=== PATIENT | male | born 1950 | race Caucasian/White ===

== ENCOUNTER 2023-11-23 09:25 | Observation (INO) ==
--- NOTE | 2023-10-21 12:47 | PAT Medication Instructions ---
Medication Instructions Date of Service October 21, 2023 Home Medications lisinopril 20 mg tablet 10 mg PO QAM multivitamin 1 tab PO QAM omeprazole 20 mg tablet,delayed release 20 mg PO QAM DO NOT take the morning of surgery lisinopril 20 mg tablet 10 mg PO QAM multivitamin 1 tab PO QAM Take morning of surgery With a small sip of water, OTHERWISE NOTHING TO EAT OR DRINK AFTER MIDNIGHT: omeprazole 20 mg tablet,delayed release 20 mg PO QAM Other Notes If you have any questions please call us at [phone] or [phone] or [phone] or [phone]
--- NOTE | 2023-10-28 11:36 | Anesthesiology Consultation ---
Date of Service October 28, 2023 Assessment & Plan (1) Encounter for pre-operative examination: - Infectious disease screening: Per assessment on 10/28/23: No known recent infectious disease contacts or current infectious disease symptoms. - Outpatient joint assessment: Pt currently scheduled for inpatient pathway. If surgeon requests review for outpatient joint pathway, patient is an acceptable candidate for outpatient joint program from anesthesia standpoint pending further evaluation of preop EKG. - Hx PONV: Patient inquired about scope patch use perioperative (good response for family member with similar PONV hx). At anesthesiologist discretion DOS regarding scope patch use. - Preop EKG: Done 10/28/23- notes TWA, consider lateral ischemia. Patient reports remote abnormal EKG findings in which unremarkable cardiac cath done for further evaluation (1987). Patient aware preop cardiac evaluation needed prior to surgery. Awaiting cardiology preop evaluation given abnormal preop EKG ([facility], appt date TB). Patient otherwise acceptable risk for surgery. Chart Review Chart Review: Patient seen in Pre Admission Testing Teaching & Discussion Pre-Anesthesia Teaching/Discussion Notes: Instructed NPO after midnight before surgery,except medications with 15 cc of water. Medication instructions provided according to the PAT guidelines. History Surgery Operation Date: 11/23/23 07:00 Proposed Procedures p Left Total Knee Arthroplasty - Nicholas Luong, DO Height/Weight Height: 5 ft 4 in Weight: 78.2 kg Allergies Allergy/AdvReac Type Severity Reaction Status Date / Time hydrocodone Allergy Intermediate n/v Verified 10/20/23 08:03 meperidine [From Demerol] Allergy Intermediate n/v Verified 10/20/23 08:03 prednisone Allergy Intermediate n/v Verified 10/20/23 08:03 Medications Home Medications Medication Instructions Recorded Confirmed Last Taken lisinopril 20 mg tablet 10 mg PO QAM 10/20/23 10/20/23 Unknown multivitamin 1 tab PO QAM 10/20/23 10/20/23 Unknown omeprazole 20 mg tablet,delayed 20 mg PO QAM 10/20/23 10/20/23 Unknown release Past Medical History Medical History Abnormal Q waves on electrocardiogram Q wave abnormality on 1987 EKG > 1987 cardiac cath with no stents per patient Arthritis Borderline high cholesterol Claustrophobia Elevated PSA GERD (gastroesophageal reflux disease) Hypertension Osteoarthritis of left knee Exercise / Class Metabolic Activity II 4-5 Yardwork/Stairs/Walk up hill (one FS: no CP, no SOB) Past Family History Family History Other No family history of adverse response to anesthesia Past Surgical History Surgical History H/O hernia repair H/O prostate biopsy benign History of cardiac cath 1987>no stents History of colonoscopy History of postoperative nausea and vomiting Past Anesthesia History No Family Hx of Anesthesia Complications and Other (Decreased BP after prostate biopsy) History of PONV History of PONV and Hx of Motion Sickness (Situational) Social History Smoking Status: Never smoker Do You Dip or Chew Tobacco: No Hx Alcohol Use: No substance use type: does not use Review of Systems Patient denies chest pain, shortness of breath, dyspnea on exertion, fever, chills, cough, wheezing, palpitations. Physical Exam Vital Signs BP 156/62 P 82 TEMP 98.1 SP02 96%RA RESP 16 Physical Full cervical extension range of motion. Full TMJ range of motion. TMD 3 finger breaths Mallampati Score III Dentition: missing sides Lungs: clear throughout to auscultation Cardiac: regular rate and rhythm, no murmurs noted Spine: normal Carotid arteries: negative bruit Extremities: no LE edema Lab Results Anesthesia Preop Results Results Anesthesia Widget: WBC 8.38 K/ul (4.8-10.8) 10/28/23 Hgb 16.4 g/dl (14.0-18.0) 10/28/23 Hct 47.1 % (42.0-52.0) 10/28/23 Plt 281 K/uL (130-400) 10/28/23 Na 138 mmol/L (136-145) 10/28/23 K 3.6 mmol/L (3.5-5.1) 10/28/23 Cl 104 mmol/L (98-107) 10/28/23 CO2 24 mmol/L (21-32) 10/28/23 BUN 15 mg/dl (6-23) 10/28/23 Creat 0.84 mg/dl (0.6-1.4) 10/28/23 Glucose Level 131 mg/dl (70-99(Fasting)) H 10/28/23 PT 10.9 Seconds (9.0-12.0) 10/28/23 PTT 29 Seconds (21-31) 10/28/23 INR 1.0 (0.9-1.1) 10/28/23 Blood Type O Positive 10/28/23 Antibody Screen NEGATIVE 10/28/23 Testing Electrocardiogram Date: 10/28/23 NSR at 79bpm. RBBB. TWA, consider lateral ischemia. Chest X-Ray Date: 10/28/23 FINDINGS: Lung volumes are normal. Lungs are clear. There is no pneumothorax or pleural effusion. Cardiac size is normal. Mediastinal contours are normal. There is no evidence for pulmonary edema. IMPRESSION: No acute cardiopulmonary findings.
[~2023-11-23 09:25] MED LIST: BUPIVACAINE 0.5 % 5 MG/1 ML PF 10ML VIAL ONE; BUPIVACAINE/EPINEPHRINE 0.25% 1:200,000 30 ML VIAL ONE; DEXAMETHASONE SOD INJ 4 MG/ML VIAL ONE
[2023-11-23] MEDS ORDERED: MIDAZOLAM HCL 1 MG/ML 2ML VIAL ONE (10:25)
[2023-11-23] MEDS ORDERED: KETAMINE HCL 10MG/ML SYR ONE (10:25)
[2023-11-23] MEDS ORDERED: PROPOFOL IV EMULSION 10 MG/ML 20 ML VIAL IV ONE (10:32)
[2023-11-23] MEDS ORDERED: LIDOCAINE 2% 2 ML VIAL/AMP(20MG/ML) INFIL ONE (10:32)
[2023-11-23] MEDS ORDERED: ONDANSETRON INJ 2 MG/ML 2 ML VIAL ONE (10:32)
[2023-11-23] MEDS ORDERED: GLYCOPYRROLATE 0.2 MG/ML VIAL ONE (10:32)
[2023-11-23] MEDS: LR 500ML BOLUS, THEN 15ML/HR IV SCH (10:35)
[2023-11-23] MEDS: LR 60ML/HR IV SCH (10:53)
[2023-11-23] MEDS: GABAPENTIN 300 MG CAP PO SCH (11:00)
[2023-11-23] MEDS: FAMOTIDINE 20 MG TAB PO SCH (11:00)
[2023-11-23] MEDS: ACETAMINOPHEN 500 MG TAB PO SCH ×2 (11:00→21:08)
[2023-11-23] MEDS: dexAMETHasone**PF** 10 MG/ML VIAL IV SCH (11:01)
--- NOTE | 2023-11-23 11:14 | History & Physical Bridge Note ---
Date of Service November 23, 2023 History & Physical Bridge Note I have examined the patient, reviewed the History & Physical and in the interval since the performance of the History & Physical I have noted the following changes of clinical significance: no changes noted
[2023-11-23] MEDS ORDERED: ONDANSETRON INJ 2 MG/ML 2 ML VIAL IV PRN (11:16)
[2023-11-23] MEDS ORDERED: PROMETHAZINE HCL 6.25 MG in SODIUM CHLORIDE 0.9% 50 ML IV PRN (11:16)
[2023-11-23] MEDS ORDERED: ATROPINE SULFATE 0.1 MG/ML 10ML SYR IV PRN (11:16)
[2023-11-23] MEDS ORDERED: fentaNYL citrate PF 100 MCG/2 ML VIAL IV PRN (11:16)
[2023-11-23] MEDS ORDERED: ePHEDrine sulfate 50 MG/ML AMP IV PRN (11:16)
--- NOTE | 2023-11-23 11:16 | Anesthesiology Consultation ---
Date of Service November 23, 2023 Assessment & Plan Chart Review Chart Review: Acceptable Risk for Surgery and Patient NOT seen in Pre Admission Testing Consults Requested none ASA ASA2 Proposed Anesthesia Anesthesia Type: MAC Spinal Regional Regional Laterality: Left Site: Adductor Canal Risk / Benefits Reviewed With: PT / POA / Parent / Guardian, Accepts Plan and Informed Consent Obtained History Surgery Operation Date: 11/23/23 12:00 Proposed Procedures p Left Total Knee Arthroplasty - Nicholas Luong, Height/Weight Height: 5 ft 4 in Weight: 75.6 kg Allergies Allergy/AdvReac Type Severity Reaction Status Date / Time hydrocodone Allergy Intermediate n/v Verified 11/23/23 10:28 meperidine [From Demerol] Allergy Intermediate n/v Verified 11/23/23 10:28 prednisone Allergy Intermediate n/v Verified 11/23/23 10:28 Medications Home Medications Medication Instructions Recorded Confirmed Last Taken lisinopril 20 mg tablet 10 mg PO QAM 10/20/23 11/23/23 11/22/23 07:00 multivitamin 1 tab PO QAM 10/20/23 11/23/23 11/22/23 07:00 omeprazole 20 mg tablet,delayed 20 mg PO QAM 10/20/23 11/23/23 11/23/23 06:30 release Active Medications Generic Name Dose Route Start Last Admin Trade Name Edgardq PRN Reason Stop Dose Admin Acetaminophen 1,000 mg 11/23/23 06:00 11/23/23 11:00 Acetaminophen 500 Mg Tab PO 11/23/23 18:00 1,000 mg PREOP LISA Administration Dexamethasone Sodium Phosphate 10 mg 11/23/23 06:00 11/23/23 11:01 DexamethasonePf 10 Mg/Ml Vial IV 11/23/23 18:00 10 mg PREOP LISA Administration Famotidine 20 mg 11/23/23 06:00 11/23/23 11:00 Famotidine 20 Mg Tab PO 11/23/23 18:00 20 mg PREOP LISA Administration Gabapentin 300 mg 11/23/23 06:00 11/23/23 11:00 Gabapentin 300 Mg Cap PO 11/23/23 18:00 300 mg PREOP LIAS Administration Lactated Ringer's 1,000 mls @ 15 mls/hr 11/23/23 06:00 11/23/23 10:35 Lr IV 11/23/23 18:00 15 mls/hr .Q24H LISA Administration Lactated Ringer's 1,000 mls @ 60 mls/hr 11/23/23 06:00 11/23/23 10:53 Lr IV 11/23/23 22:39 Not Given .[id number] LISA NPO Date Last Intake of Fluids: 11/22/23 Time Last Intake of Fluids: 23:00 Date Last Intake of Solids: 11/22/23 Time Last Intake of Solids: 23:00 Past Medical History Medical History Abnormal Q waves on electrocardiogram Q wave abnormality on 1987 EKG > 1987 cardiac cath with no stents per patient Arthritis Borderline high cholesterol Claustrophobia Elevated PSA GERD (gastroesophageal reflux disease) Hypertension Osteoarthritis of left knee Exercise / Class Metabolic Activity II 4-5 Yardwork/Stairs/Walk up hill Past Family History Family History Other No family history of adverse response to anesthesia Past Surgical History Surgical History H/O hernia repair H/O prostate biopsy benign History of cardiac cath 1987>no stents History of colonoscopy History of postoperative nausea and vomiting Past Anesthesia History No Hx of Anesthesia Complications and No Family Hx of Anesthesia Complications History of PONV No Hx of PONV and No Hx of Motion Sickness Social History Smoking Status: Never smoker Do You Dip or Chew Tobacco: No Hx Alcohol Use: No substance use type: does not use Physical Exam Vital Signs Last Vital Signs Temp 37 C 11/23/23 10:30 Pulse 82 11/23/23 10:30 Resp 20 11/23/23 10:30 BP 143/95 H 11/23/23 10:30 Pulse Ox 96 11/23/23 10:30 O2 Del Method Room Air 11/23/23 10:30 ENMT Mouth: no dentition abnormality Thyromental Distance: > or= 3.5 Finger Breadths Mallampati Class: II Neck normal visual inspection Respiratory normal respiratory effort Auscultation: lungs clear to auscultation bilaterally Cardiovascular Rate/Rhythm: regular rate and regular rhythm Psychiatric Orientation: alert Testing Electrocardiogram Date: 10/28/23 NSR at 79bpm. RBBB. TWA, consider lateral ischemia. Chest X-Ray Date: 10/28/23 FINDINGS: Lung volumes are normal. Lungs are clear. There is no pneumothorax or pleural effusion. Cardiac size is normal. Mediastinal contours are normal. There is no evidence for pulmonary edema. IMPRESSION: No acute cardiopulmonary findings.
[2023-11-23] MEDS: TRANEXAMIC ACID 1,000 MG **IV Pre-op IV SCH (11:53)
[2023-11-23] MEDS: ceFAZolin 2000MG 2,000 MG/15 ML SYR IV SCH ×2 (12:05→19:30)
[2023-11-23] MEDS: ORTHO JOINT ANESTHETIC ONE (12:50)
[2023-11-23] MEDS: ROPIV 0.5% 246mg, Ketorolac 30mg, EPINEPHrine 0.5mg in NSS INFIL SCH (12:50)
[2023-11-23] MEDS: TRANEXAMIC ACID 1,000 MG **IV Intra-op IV SCH (13:10)
--- NOTE | 2023-11-23 13:35 | Operative Report ---
PG Post Operative Report Pre & Post Diagnosis Operation Date: 11/23/23 12:00 Pre-Op Diagnosis: Left Knee Degenerative Joint Disease Post-Op Diagnosis: Left Knee Degenerative Joint Disease I identified the patient and participated in the time-out.: Yes Procedure Operation Date: 11/23/23 12:00 Actual Procedures p Left Total Knee Arthroplasty(Left) - Nicholas Luong DO Surgeon Nicholas Luong DO Regional Psychiatric Director Nicholas Jefferson PA-C Estimated Blood Loss 30 Findings Consistent with Post-Op Diagnosis Specimens Left femoral tibial bone Description of Procedure Implants used: I used a Jose Persona total knee arthroplasty system with a size 9 PS femur, E tibia, 31 oval patella, and a size 12 CPS polyethylene bearing. All components were cemented in place with Biomet cement. Hugo arrived [facility] for the above procedure. He was seen in the preoperative holding area and the operative extremity was identified and signed. He was given a preoperative antibiotic, TXA, a spinal anesthetic and an adductor nerve block. He was taken back to the operating room and laid on the table in supine position. He was given basic sedation. The operative knee was then prepped and draped in sterile fashion. A timeout was done, and the patient and the operative extremity was properly identified. A midline incision was made directly over the patella. Dissection was taken down to the extensor mechanism. A subvastus arthrotomy was used. The medial retinaculum was released and the fat pad was mostly excised. The knee was flexed and the ACL, PCL, and meniscus were removed. A drill was sent down the center of the femoral canal followed by an intramedullary bulmaro. Off that bulmaro a distal femoral cutting block was placed. 9 mm was resected off the distal femur at 5 of valgus. A posterior referencing AP sizing guide was then placed on the distal femur. The femur measured to be a size 9. 2 drill holes were placed in 3 of external rotation. A 4-in-1 cutting block was then impacted into place. Anterior, posterior, and chamfer cuts were then made. The proximal tibia was then exposed. An external tibial alignment guide was placed. A tibial cut guide was then anchored in place and the proximal tibia was then resected. The posterior aspect of the knee was then opened up and any additional meniscus fragments and osteophytes were removed. The tibia measured to be a size E. The tibial plate was then placed in the appropriate rotation and the tibia was drilled and punched. Trial components were then placed. I used a size 12 CPS polyethylene insert. The knee was brought through a full range of motion and felt to be stable. The peg holes for the femoral component were then drilled. The patella was then everted and 9 mm was resected off the posterior aspect of the patella. The patella measured to be a size 28 oval. 3 peg holes were then drilled. A trial patella was placed. The knee was once again brought through a full range of motion and felt to be stable. Trial components were then removed. The surrounding soft tissues were injected with 100 cc of an orthopedic pain control cocktail. All components were then cemented into place with Biomet cement. The final polyethylene insert was then snapped into place. Once cement was dry the tourniquet was deflated. Hemo stasis was obtained. A dilute betadyne lavage was then done for 3 minutes. The joint was then irrigated with normal saline solution. The subvastus arthrotomy was then closed with #1 Vicryl suture. The skin was closed with 2-0 Vicryl, 3- 0V lock suture, and chele. A soft compressive dressing was placed. He was then transferred to a hospital bed and taken to the postanesthesia care unit in stable condition. He tolerated the procedure well. Nicholas Jefferson PA-C, was present for the entire procedure. He was critical for patient positioning, prepping, draping, retraction exposure, wound closure and application of sterile dressing. I attest to the content of the Intraoperative Record and any orders documented therein. Any exceptions are noted below.
--- NOTE | 2023-11-23 13:55 | XRay Report ---
XR knee LT 1 or 2V routine CLINICAL HISTORY: Surgical Post Op TECHNIQUE: 2 views of the left knee were obtained. Comparison: Comparison is made to knee radiographs 08/18/2023 FINDINGS: Patient is status post total knee arthroplasty with expected postsurgical changes including soft tiss ue swelling and subcutaneous emphysema. No periarticular lucency or hardware fracture is seen. IMPRESSION: Expected postoperative appearance status post placement of total knee arthroplasty. ACT 112: Negative or not required by law. Electronically signed by: Marbin Do M.D. 11/23/2023 1:54 PM
--- NOTE | 2023-11-23 14:30 | Anesthesiology Progress Note ---
Date of Service November 23, 2023 Anesthesia Post Procedure Vital Signs Vital Signs: Temp Pulse Resp BP BP Pulse Ox O2 Del Method 11/23/23 14:15 36.5 C 95 H 16 125/76 94 Room Air 11/23/23 14:05 97 H 14 143/81 H 94 Oxymask 11/23/23 13:55 92 H 12 142/84 H 95 Oxymask 11/23/23 13:45 87 16 132/70 95 Oxymask 11/23/23 13:37 36.5 C 90 16 121/70 95 Oxymask 11/23/23 10:30 37 C 82 20 143/95 H 96 Room Air O2 Flow Rate 11/23/23 14:15 11/23/23 14:05 4 11/23/23 13:55 4 11/23/23 13:45 4 11/23/23 13:37 6 11/23/23 10:30 Pain Intensity Left Knee: Pain Intensity: 8 Transfer of Care Handoff Completed per policy Notes Mental Status: alert / awake / arousable Patient Amnestic to Procedure: Yes Nausea / Vomiting: adequately controlled Pain: adequately controlled Airway Patency, RR, SpO2: stable & adequate BP & HR: stable & adequate Hydration State: stable & adequate Neuraxial Anesthesia: was administered and sensory block is resolving Anesthetic Complications: no major complications apparent and Pt Satisfied with anesthetic care
[2023-11-23] MEDS ORDERED: HYDROmorphone INJ 0.5 MG/0.5 ML SYR IV PRN (15:04)
[2023-11-23] MEDS ORDERED: bisacodyL 10 MG SUPP PR PRN (15:04)
[2023-11-23] MEDS ORDERED: METOCLOPRAMIDE HCL INJ 5 MG/ML 2 ML VIAL IV PRN (15:04)
[2023-11-23] MEDS ORDERED: NALOXONE HCL 0.4 MG/1 ML VIAL/CARP IV PRN (15:04)
[2023-11-23] MEDS ORDERED: MAGNESIUM HYDROXIDE SUSP 30 ML UDC PO PRN (15:04)
[2023-11-23] MEDS: ONDANSETRON INJ 2 MG/ML 2 ML VIAL IV PRN (15:44)
[2023-11-23] MEDS: SODIUM CHLORIDE 0.9% 1,000 ML IV SCH (15:48)
[2023-11-23] MEDS: oxyCODONE HCL IR 5 MG TAB (IMMEDIATE RELEASE) PO PRN (19:30)
[2023-11-23] MEDS: ASPIRIN 81 MG ECTAB PO SCH (21:08)
[2023-11-23] MEDS: SENNA 8.6 MG TAB PO SCH (21:08)
[2023-11-23] MEDS: DOCUSATE SODIUM 100 MG CAP PO SCH (21:08)
[2023-11-24 03:26] VITALS: RESP 16; TEMP 97.8
--- NOTE | 2023-11-24 07:06 | Orthopedic Progress Note ---
Date of Service November 24, 2023 Assessment & Plan (1) Status post left knee replacement: Overall he is doing very well. He is not having much pain in the left knee. He will be seen by physical therapy today for ambulation and range of motion exercises. The nursing staff can change his dressing after physical therapy. He is on aspirin for DVT prophylaxis. He can be discharged home later today. He will follow-up with orthopedics in 2 weeks. Nikhil Arias was seen and examined at bedside this morning. Overall he is doing fairly well. He is not having much pain in his left knee. He has been up and ambulating to the bathroom. He has no complaints.. Review of Systems All systems reviewed & are unremarkable except as noted in HPI & below. Physical Exam On physical examination of the left knee, the dressing is clean and dry. His leg is out full extension. He has active dorsiflexion plantarflexion of his left ankle.. Results & Data Results & Data Laboratory Results . Diagnostic Findings Postoperative x-rays of the left knee show the prosthesis to be in anatomic alignment without any evidence of fracture complication, or loosening.. PG Care Time/CCT Total # of Minutes Spent Total Time Spent with Patient: Total time spent is greater than 50% in coordination of care (as documented) at patient's floor/unit and/or counseling patient: Coding Level of Care Code 16525 Post Operative Follow-Up Diagnoses Status post left knee replacement Z96.652
--- NOTE | 2023-11-24 07:07 | Discharge Summary ---
Date of Service November 24, 2023 Principal Diagnosis Same as "Discharge Diagnosis" noted below under Discharge Instructions. Discharge Exam On physical examination of the left knee, the dressing is clean and dry. His leg is out full extension. He has active dorsiflexion plantarflexion of his left ankle.. Discharge Data Procedures Performed Operation Date: 11/23/23 12:00 Actual Procedures p Left Total Knee Arthroplasty(Left) - Nicholas Luong DO Ordered Studies 11/23/23 05:00 US - OR guided needle placemen Routine Hospital Course (1) Status post left knee replacement: On November 23, [address] [facility] [place] and underwent a left knee replacement without complication. he had a spinal anesthetic. Postoperatively he was started on aspirin for DVT prophylaxis and transferred to the general orthopedic floors. His hospital course was uneventful. On postop day #1, his vital signs were stable and her pain was well-controlled. he was able to participate well with physical therapy doing ambulation and range of motion exercises. he was then discharged to home. he will follow-up with orthopedics in 2 weeks. PG Care Time/CCT Total # of Minutes Spent Total Time Spent with Patient: Total time spent is greater than 50% in coordination of care (as documented) at patient's floor/unit and/or counseling patient: Discharge Plan Discharge Items Patient Disposition: Home - Self-Care Reason For Visit: Left Knee Degenerative Joint Disease Discharge Diagnosis: Left knee replacement Activity: Per Instructions section Non-emergency contact: Surgeon Call non-emergency contact if: your wound has increased redness and your wound has increased drainage Follow-up/Referrals: Frances Valenzuela MD [Primary Care Provider] - Diet: Regular Addtl Attending Provider Instructions: Activity and Therapy Recommendations: * If you are using [facility] then therapy will be provided at your home until they feel you have accomplished all of your goals. * If you are using [facility] then Physical Therapy will be provided until they feel you are ready to start Outpatient Physical Therapy. * If you are not using home therapy then Outpatient Physical Therapy should start about 3-5 days from your day of surgery. Therapy will last about 6-10 weeks * It is important not to put a pillow under your knee when you are relaxing or sleeping. It is just as important to make sure you are getting your knee perfectly straight as it is to regain your knee bend. * You were shown a series of exercises in the hospital. Do these exercises three times each day including the exercises you were shown in physical therapy. * Get up and walk several times each day. For the first four weeks, try not to stand or walk for more than one hour at a time. If you do stand or walk for more than one hour, you will not hurt anything, but your leg will likely swell. * As you feel comfortable, you may change from the walker or crutches to a cane and then to independent walking. Medications: * Narcotic You will likely be sent home from the hospital with a prescription for the narcotic pain medication that worked best throughout your stay. * Cefadroxil -take the antibiotic twice a day for 10 days to help prevent infection. * Aspirin Most patients will be required to take Aspirin 81mg twice a day for 6 weeks after surgery. This is obtained [id number] and a prescription is not necessary. * Other medications may be prescribed for specific circumstances. If you have any questions, please call the office at . * Resume previous home medications unless otherwise instructed TEDs/Elastic Stockings: The white elastic stockings help limit swelling and prevent blood clots from forming in your legs.~ The more you wear them, the more they work. Wear them for six weeks. Dressing Care: The dressing can be changed after physical therapy on postop day #1. Daily dry dressing changes for a few days, especially if the incision is still draining some. If the incision is not draining then you may leave the chele open to air. If there is a little bit of drainage or if the chele are getting stuck on your clothing then cover the incision with a dry dressing. The chele will be removed at your 2 week follow-up appointment. Showering: You may shower 5 days from the day of surgery as long as the incision is no longer draining. You may shower with the chele exposed. Let soapy water run over the chele and pat them dry. Do not scrub or soak the incision. Things To Watch For: * Drainage from the incision site that occurs more than one week after your surgery. * Increased redness at the incision site. * Fever above 102 degrees Fahrenheit. * Unusual chest pain or shortness of breath. * Call [facility] at with any of the above problems Follow-Up Visit: Follow-up with Dr. Luong's PA (Nicholas Jefferson) 2-3 weeks after your day of surgery. He will remove your chele and answer any questions. If you have any additional questions or concerns, Dr Luong is usually in the office at the same time and will be available An appointment was probably scheduled when you signed-up for surgery in the office. If you have any questions call Office Instructions: More detailed instructions as well as Frequently Asked Questions were provided in a folder by our office when you signed-up for surgery. Please review these instructions when you get home. If you have any further questions or concerns, please feel free to call the office at [phone] Pending Studies at Discharge: No Stand-Alone Forms: My [facility], Smoking Cessation Medications and DC Order Prescriptions: New oxycodone 5 mg Tablet 5 mg PO Q4H PRN (Reason: pain) Qty: 30 0RF cefadroxil 500 mg capsule 500 mg PO BID 10 Days Qty: 20 0RF aspirin 81 mg Tablet,Delayed Release (Dr/Ec) 81 mg PO BID 42 Days Qty: 0 0RF Continued multivitamin Tablet 1 tab PO QAM lisinopril 20 mg Tablet 10 mg PO QAM omeprazole 20 mg Tablet,Delayed Release (Dr/Ec) 20 mg PO QAM Discharge Orders: Discharge Order (Routine); Ordered 11/24/23 Ordered By: Nicholas Luong Admission Data Admit Date/Time: 11/23/23 13:39 Attending Provider: Nicholas Luong Admit Provider: Nicholas Luong Primary Care Provider: Frances Valenzuela
[2023-11-24 07:40] VITALS: BP 136/78; PULSE 79; O2SAT 93
[2023-11-24] MEDS: dexAMETHasone 4 MG TAB PO SCH (08:38)
[2023-11-24] MEDS: MULTIVITAMIN TAB PO SCH (08:38)
[2023-11-24] MEDS: lisinopril 10 MG TAB PO SCH (08:38)
== END 2023-11-24 11:01 | disposition home or self-care (01) ==
LOC: ASU 09:25 → 3W 09:25

== ENCOUNTER 2024-05-30 08:50 | Observation (INO) ==
--- NOTE | 2024-05-03 10:37 | PAT Medication Instructions ---
Medication Instructions Date of Service May 03, 2024 Home Medications lisinopril 20 mg tablet 10 mg PO QAM omeprazole 20 mg tablet,delayed release 20 mg PO QAM DO NOT take the morning of surgery lisinopril 20 mg tablet 10 mg PO QAM Take morning of surgery With a small sip of water, OTHERWISE NOTHING TO EAT OR DRINK AFTER MIDNIGHT: omeprazole 20 mg tablet,delayed release 20 mg PO QAM Other Notes If you have any questions please call us at [phone] or [phone] or [phone] or [phone]
--- NOTE | 2024-05-10 10:32 | Anesthesiology Consultation ---
Date of Service May 10, 2024 Assessment & Plan (1) Encounter for pre-operative examination: - Infectious disease screening: Per assessment on 05/10/24- No known recent infectious disease contacts. Sinus infection/congestion onset ~04/18/24. Symptoms resolved except residual, occasional mild cough/congestion. DOS 05/30/24. Patient advised to contact surgeon/PAT if symptoms not at baseline prior to surgery. - Outpatient joint assessment: Pt currently scheduled for inpatient pathway. If surgeon requests review for outpatient joint pathway, patient is an acceptable candidate for outpatient joint program from anesthesia standpoint pending surgeon's office assessment that patient is motivated, has good support and completes [facility] preop requirements. - Cardiology addendum (11/20/23): Preop evaluation prior to Left TKA > "Patient underwent a transthoracic echocardiogram today which demonstrates normal Left ventricular chamber size and systolic function with an ejection fraction of 60 to 65%. Patient has moderate concentric left ventricular hypertrophy and mildly dilated left atrium which is consistent with hypertensive heart disease. This is also consistent with patient's 12lead ECG. Patient has no valvular heart disease. At this time do not recommend further cardiovascular testing or procedures prior to undergoing planned surgery on 11/23/2023. Patient should be considered a low to intermediate cardiovascular risk candidate. Do recommend strict blood pressure control throughout the perioperative period. Patient's blood pressure at time of echocardiogram was wellcontrolled at 132/64." - S/P Left TKA (11/23/23): SAB at L3/4 (1 attempt) + regional - Patient request/concern: Patient states med given prior to 11/23/23 surgery was effective for N/V and requests to have again Chart Review Chart Review: Acceptable Risk for Surgery and Patient seen in Pre Admission Testing Teaching & Discussion Pre-Anesthesia Teaching/Discussion Notes: Instructed NPO after midnight before surgery,except medications with 15 cc of water. Medication instructions provided according to the PAT guidelines. History Surgery Operation Date: 05/30/24 10:20 Proposed Procedures p Right Total Knee Arthroplasty - Nicholas Luong DO Height/Weight Height: 5 ft 4 in Weight: 77.2 kg Allergies Allergy/AdvReac Type Severity Reaction Status Date / Time hydrocodone Allergy Intermediate n/v Verified 04/28/24 09:45 meperidine [From Demerol] Allergy Intermediate n/v Verified 04/28/24 09:45 prednisone Allergy Intermediate n/v Verified 04/28/24 09:45 Medications Home Medications Medication Instructions Recorded Confirmed Last Taken lisinopril 20 mg tablet 10 mg PO QAM 10/20/23 04/28/24 11/22/23 07:00 omeprazole 20 mg tablet,delayed 20 mg PO QAM 10/20/23 04/28/24 11/23/23 06:30 release Past Medical History Medical History Abnormal Q waves on electrocardiogram Q wave abnormality on 1987 EKG > 1987 cardiac cath with no stents per patient Seen by [facility] 10/2023 Arthritis Borderline high cholesterol Claustrophobia Elevated PSA GERD (gastroesophageal reflux disease) Hypertension Osteoarthritis of right knee Exercise / Class Metabolic Activity II 4-5 Yardwork/Stairs/Walk up hill (one FS: No CP, no SOB) Past Family History Family History Other No family history of adverse response to anesthesia Past Surgical History Surgical History H/O hernia repair H/O prostate biopsy benign History of cardiac cath 1987- no stents History of colonoscopy History of postoperative nausea and vomiting Patient states med given prior to 11/23/23 surgery was effective for N/V and requests to have again Status post left knee replacement (11/23/23) Left TKA: SAB at L3/4 (1 attempt) + regional Past Anesthesia History No Hx of Anesthesia Complications and No Family Hx of Anesthesia Complications History of PONV History of PONV and Hx of Motion Sickness Social History Smoking Status: Never smoker Do You Dip or Chew Tobacco: No Hx Alcohol Use: No Hx Substance Use: No substance use type: does not use Review of Systems Patient denies chest pain, shortness of breath, dyspnea on exertion, fever, chills, cough, wheezing. Physical Exam Vital Signs BP 127/75 P 77 TEMP 98.1 SP02 95%RA RESP 16 Physical Full cervical extension range of motion. Full TMJ range of motion. TMD > 3.5 finger breaths Mallampati Score II Dentition: missing sides/molars Lungs: clear throughout to auscultation Cardiac: regular rate and rhythm, no murmurs noted Spine: normal Carotid arteries: negative bruit Extremities: no LE edema Lab Results Anesthesia Preop Results Results Anesthesia Widget: WBC 8.43 K/ul (4.8-10.8) 05/10/24 Hgb 16.7 g/dl (14.0-18.0) 05/10/24 Hct 48.4 % (42.0-52.0) 05/10/24 Plt 310 K/uL (130-400) 05/10/24 Na 136 mmol/L (136-145) 05/10/24 K 4.1 mmol/L (3.5-5.1) 05/10/24 Cl 103 mmol/L (98-107) 05/10/24 CO2 26 mmol/L (21-32) 05/10/24 BUN 12 mg/dl (6-23) 05/10/24 Creat 0.80 mg/dl (0.6-1.4) 05/10/24 Glucose Level 99 mg/dl (70-99(Fasting)) 05/10/24 PT 10.7 Seconds (9.0-12.0) 05/10/24 PTT 31 Seconds (21-31) 05/10/24 INR 1.0 (0.9-1.1) 05/10/24 Blood Type O Positive 05/10/24 Antibody Screen NEGATIVE 05/10/24 Testing Electrocardiogram Date: 10/28/23 NSR at 79bpm. RBBB. TWA, consider lateral ischemia. Chest X-Ray Date: 10/28/23 FINDINGS: Lung volumes are normal. Lungs are clear. There is no pneumothorax or pleural effusion. Cardiac size is normal. Mediastinal contours are normal. There is no evidence for pulmonary edema. IMPRESSION: No acute cardiopulmonary findings. Echocardiogram Date: 11/20/23 LVEF 60-65%. No RWMA. Moderate cLVH. Mild LAD. RVSP ~24mmhg. No significant valvular disease.
[~2024-05-30 08:50] MED LIST changes: -BUPIVACAINE/EPINEPHRINE 0.25% 1:200,000 30 ML VIAL ONE; -DEXAMETHASONE SOD INJ 4 MG/ML VIAL ONE; +ROPIVACAINE 0.5% 5 MG/ML 30 ML VIAL ONE
[2024-05-30] MEDS: LR 500ML BOLUS, THEN 15ML/HR IV SCH (09:40)
[2024-05-30] MEDS: FAMOTIDINE 20 MG TAB PO SCH (09:42)
[2024-05-30] MEDS: LR 60ML/HR IV SCH (09:42)
[2024-05-30] MEDS: GABAPENTIN 300 MG CAP PO SCH (09:43)
[2024-05-30] MEDS: dexAMETHasone**PF** 10 MG/ML VIAL IV SCH (09:43)
[2024-05-30] MEDS: ACETAMINOPHEN 500 MG TAB PO SCH ×2 (09:43→14:20)
[2024-05-30] MEDS ORDERED: PROPOFOL IV EMULSION 10 MG/ML 20 ML VIAL IV ONE ×2 (09:57→10:01)
[2024-05-30] MEDS ORDERED: MIDAZOLAM HCL 1 MG/ML 2ML VIAL ONE (09:58)
--- NOTE | 2024-05-30 10:01 | History & Physical Bridge Note ---
Date of Service May 30, 2024 History & Physical Bridge Note I have examined the patient, reviewed the History & Physical and in the interval since the performance of the History & Physical I have noted the following changes of clinical significance: no changes noted
[2024-05-30] MEDS ORDERED: ePHEDrine sulfate 50 MG/ML AMP IV PRN (10:07)
[2024-05-30] MEDS ORDERED: fentaNYL citrate PF 100 MCG/2 ML VIAL IV PRN (10:07)
[2024-05-30] MEDS ORDERED: ATROPINE SULFATE 0.1 MG/ML 10ML SYR IV PRN (10:07)
[2024-05-30] MEDS ORDERED: ONDANSETRON INJ 2 MG/ML 2 ML VIAL IV PRN ×2 (10:07→13:29)
[2024-05-30] MEDS: TRANEXAMIC ACID 1,000 MG **IV Pre-op IV SCH (10:14)
[2024-05-30] MEDS: ceFAZolin 2000MG 2,000 MG/15 ML SYR IV SCH (10:38)
[2024-05-30] MEDS: ROPIV 0.5% 246mg, Ketorolac 30mg, EPINEPHrine 0.5mg in NSS INFIL SCH (11:16)
[2024-05-30] MEDS: ORTHO JOINT ANESTHETIC ONE (11:20)
[2024-05-30] MEDS: TRANEXAMIC ACID 1,000 MG **IV Intra-op IV SCH (11:44)
--- NOTE | 2024-05-30 11:51 | Operative Report ---
PG Post Operative Report Pre & Post Diagnosis Operation Date: 05/30/24 10:20 Pre-Op Diagnosis: Left Knee Arthritis Post-Op Diagnosis: Left Knee Arthritis I identified the patient and participated in the time-out.: Yes Procedure Operation Date: 05/30/24 10:20 Actual Procedures p Right Total Knee Arthroplasty(Right) - Nicholas Luong DO Surgeon Nicholas Luong DO Dispatcher Service Chief Yogi Alvarenga PA-C Estimated Blood Loss 50 Findings Consistent with Post-Op Diagnosis Specimens Right femoral and tibial bone Description of Procedure Implants used: I used a Jose Persona total knee arthroplasty system with a size 9 PS femur, E tibia, 31 oval patella, and a size 12 CPS polyethylene bearing. All components were cemented in place with Biomet cement. Hugo arrived [facility] for the above procedure. He was seen in the preoperative holding area and the operative extremity was identified and signed. He was given a preoperative antibiotic, TXA, a spinal anesthetic and an adductor nerve block. He was taken back to the operating room and laid on the table in supine position. He was given basic sedation. The operative knee was then prepped and draped in sterile fashion. A timeout was done, and the patient and the operative extremity was properly identified. A midline incision was made directly over the patella. Dissection was taken down to the extensor mechanism. A medial parapatellar arthrotomy was used. The medial retinaculum was released and the fat pad was mostly excised. The knee was flexed and the ACL, PCL, and meniscus were removed. A drill was sent down the center of the femoral canal followed by an intramedullary bulmaro. Off that bulmaro a distal femoral cutting block was placed. 9 mm was resected off the distal femur at 5 of valgus. A posterior referencing AP sizing guide was then placed on the distal femur. The femur measured to be a size 9. 2 drill holes were placed in 3 of external rotation. A 4-in-1 cutting block was then impacted into place. Anterior, posterior, and chamfer cuts were then made. The proximal tibia was then exposed. An external tibial alignment guide was placed. A tibial cut guide was then anchored in place and the proximal tibia was then resected. The posterior aspect of the knee was then opened up and any additional meniscus fragments and osteophytes were removed. The tibia measured to be a size E. The tibial plate was then placed in the appropriate rotation and the tibia was drilled and punched. Trial components were then placed. I used a size 12 CPS polyethylene insert. The knee was brought through a full range of motion and felt to be stable. The peg holes for the femoral component were then drilled. The patella was then everted and 9 mm was resected off the posterior aspect of the patella. The patella measured to be a size 31 oval. 3 peg holes were then drilled. A trial patella was placed. The knee was once again brought through a full range of motion and felt to be stable. Trial components were then removed. The surrounding soft tissues were injected with 100 cc of an orthopedic pain control cocktail. All components were then cemented into place with Biomet cement. The final polyethylene insert was then snapped into place. Once cement was dry the tourniquet was deflated. Hemostasis was obtained. A dilute betadyne lavage was then done for 3 minutes. The joint was then irrigated with normal saline solution. The medial parapatellar arthrotomy was then closed with #1 Vicryl suture. The skin was closed with 2-0 Vicryl, 3-0V lock suture, and chele. A soft compressive dressing was placed. He was then transferred to a hospital bed and taken to the postanesthesia care unit in stable condition. He tolerated the procedure well. Yogi Alvarenga PA-C, was present for the entire procedure. He was critical for patient positioning, prepping, draping, retraction exposure, wound closure and application of sterile dressing. I attest to the content of the Intraoperative Record and any orders documented therein. Any exceptions are noted below.
--- NOTE | 2024-05-30 12:38 | XRay Report ---
XR knee RT 1 or 2V routine CLINICAL HISTORY: Surgical Post Op COMPARISON: None FINDINGS: Right knee prosthesis shows no hardware complication. There is expected soft tissue gas. S kin chele are present. IMPRESSION: Unremarkable postoperative exam. ACT 112: Negative or not required by law. Electronically signed by: Geovani Conteh M.D. 05/30/2024 12:36 PM
--- NOTE | 2024-05-30 13:16 | Anesthesiology Progress Note ---
Date of Service May 30, 2024 Anesthesia Post Procedure Vital Signs Vital Signs: Temp Pulse Pulse Resp BP Pulse Ox O2 Del Method 05/30/24 13:05 78 17 117/67 94 Room Air 05/30/24 12:55 81 20 86/69 L 94 Room Air 05/30/24 12:45 82 16 126/63 93 Room Air 05/30/24 12:35 84 16 107/70 94 Room Air 05/30/24 12:25 86 16 99/79 L 96 Room Air 05/30/24 12:15 36.5 C 87 17 98/60 L 95 Room Air 05/30/24 12:05 93 H 16 109/67 97 Room Air 05/30/24 11:58 36.4 C L 95 H 19 102/62 98 Oxymask 05/30/24 09:19 36.8 C 75 20 107/83 97 Room Air O2 Flow Rate 05/30/24 13:05 05/30/24 12:55 05/30/24 12:45 05/30/24 12:35 05/30/24 12:25 05/30/24 12:15 05/30/24 12:05 05/30/24 11:58 6 05/30/24 09:19 Pain Intensity Right Knee: Pain Intensity: 4 Notes Mental Status: alert / awake / arousable Patient Amnestic to Procedure: Yes Nausea / Vomiting: adequately controlled Pain: adequately controlled Airway Patency, RR, SpO2: stable & adequate BP & HR: stable & adequate Hydration State: stable & adequate Neuraxial Anesthesia: was administered and sensory block is resolving Anesthetic Complications: no major complications apparent
[2024-05-30] MEDS ORDERED: METOCLOPRAMIDE HCL INJ 5 MG/ML 2 ML VIAL IV PRN (13:29)
[2024-05-30] MEDS ORDERED: NALOXONE HCL 0.4 MG/1 ML VIAL/CARP IV PRN (13:29)
[2024-05-30] MEDS ORDERED: bisacodyL 10 MG SUPP PR PRN (13:29)
[2024-05-30] MEDS ORDERED: MAGNESIUM HYDROXIDE SUSP 30 ML UDC PO PRN (13:29)
[2024-05-30] MEDS ORDERED: HYDROmorphone INJ 0.5 MG/0.5 ML SYR IV PRN (13:29)
[2024-05-30] MEDS: KETOROLAC TROMETHAMINE 15 MG/ML VIAL IV SCH (14:20)
[2024-05-30] MEDS: ceFAZolin 1000MG 1,000 MG/7.5 ML SYR IV SCH (17:41)
[2024-05-30] MEDS: SENNA 8.6 MG TAB PO SCH (20:18)
[2024-05-30] MEDS: DOCUSATE SODIUM 100 MG CAP PO SCH (20:18)
[2024-05-30] MEDS: ASPIRIN 81 MG ECTAB PO SCH (20:20)
[2024-05-31 03:26] VITALS: RESP 16
[2024-05-31 07:11] VITALS: PULSE 76; TEMP 98.2; O2SAT 96
[2024-05-31] MEDS: dexAMETHasone 4 MG TAB PO SCH (07:15)
[2024-05-31] MEDS: lisinopril 10 MG TAB PO SCH (07:16)
[2024-05-31] MEDS: PANTOprazole 40 MG TAB PO SCH (07:16)
[2024-05-31] MEDS: MULTIVITAMIN TAB PO SCH (07:16)
[2024-05-31] MEDS: oxyCODONE HCL IR 5 MG TAB (IMMEDIATE RELEASE) PO PRN (07:20)
[2024-05-31 09:44] VITALS: BP 120/75
--- NOTE | 2024-05-31 12:43 | Orthopedic Progress Note ---
Date of Service May 31, 2024 Assessment & Plan (1) Status post right knee replacement: Assessment: Status post right knee replacement Plan: 1. DVT prophylaxis w/ ASA 81 mg twice daily. 2. Awaiting PT/OT evaluation and recommendations. Weightbearing as tolerated. 3. Pain well controlled continue current regimen. 4. Continue rest, ice and elevation. Keep dressing clean and dry. May be changed prior to discharge today. 5. Patient okay for discharge from orthopedic standpoint following evaluation and recommendations from PT/OT. 6. Follow-up outpatient in orthopedics office within 2-3 weeks. Subjective Gallo Arias was seen and evaluated this morning resting comfortably no apparent distress. He notes that his pain is well-controlled to his right knee. He has been up and ambulating with no significant issues. He has yet to work with physical therapy today. He denies any concerns with surgical incision site. Denies any active bleeding, discharge, or signs of infection. He denies any other concerns today. Review of Systems All systems reviewed & are unremarkable except as noted in HPI & below. Physical Exam . On physical examination of the right knee, the dressings are clean, dry, intact with no evidence of any bleeding, discharge, or signs of infection. His leg is out in full extension. He has limited range of motion secondary to postoperative stiffness and soreness. Calf soft nontender to palpation. Negative Homans' sign. Intact plantarflexion dorsiflexion of right ankle. +2 DP and PT pulse. Less than 2-second capillary refill. Normal sensation. Neurovascular intact. Results & Data Results & Data Laboratory Results . Diagnostic Findings . Knee X-Ray 05/30/24 12:01 XR knee RT 1 or 2V routine CLINICAL HISTORY: Surgical Post Op COMPARISON: None FINDINGS: Right knee prosthesis shows no hardware complication. There is expected soft tissue gas. Skin chele are present. IMPRESSION: Unremarkable postoperative exam. ACT 112: Negative or not required by law. Electronically signed by: Geovani Conteh M.D. 05/30/2024 12:36 PM PG Care Time/CCT Total # of Minutes Spent Total Time Spent with Patient: Total time spent is greater than 50% in coordination of care (as documented) at patient's floor/unit and/or counseling patient: Coding Level of Care Code 91937 Post Operative Follow-Up Diagnoses Status post right knee replacement Z96.651
--- NOTE | 2024-05-31 12:45 | Discharge Summary ---
Date of Service May 31, 2024 Principal Diagnosis Same as "Discharge Diagnosis" noted below under Discharge Instructions. Discharge Exam . On physical examination of the right knee, the dressings are clean, dry, intact with no evidence of any bleeding, discharge, or signs of infection. His leg is out in full extension. He has limited range of motion secondary to postoperative stiffness and soreness. Calf soft nontender to palpation. Negative Homans' sign. Intact plantarflexion dorsiflexion of right ankle. +2 DP and PT pulse. Less than 2-second capillary refill. Normal sensation. Neurovascular intact. Discharge Data Procedures Performed Operation Date: 05/30/24 10:20 Actual Procedures p Right Total Knee Arthroplasty(Right) - Nicholsa Luong DO Ordered Studies 05/30/24 05:00 US - OR guided needle placemen Routine Hospital Course (1) Status post right knee replacement: On May 30, 2024 Hugo arrived at [facility] and underwent a right total knee arthroplasty performed by Dr. Luong. He had a spinal anesthetic. Postoperatively, he was started on aspirin for DVT prophylaxis and transferred to the general orthopedic floor in stable condition. His hospital course was uneventful. On postoperative day #1, his vital signs are stable and his pain was well-controlled. He participated well working with physical therapy working on ambulation and range of motion exercises. He was then discharged home in stable condition. He will follow-up with orthopedics in 2 to 3 weeks for continued postoperative management or sooner if needed. PG Care Time/CCT Total # of Minutes Spent Total Time Spent with Patient: Total time spent is greater than 50% in coordination of care (as documented) at patient's floor/unit and/or counseling patient: Discharge Plan Discharge Items Patient Disposition: Home - Home Health Services Reason For Visit: Right Knee Arthritis Discharge Diagnosis: Same Activity: Per Instructions section Non-emergency contact: Surgeon Call non-emergency contact if: your temperature is above 101.5, your wound has increased redness, your wound has increased drainage and your wound pain has increased Follow-up/Referrals: Frances Valenzuela MD [Primary Care Provider] - Diet: Regular Addtl Attending Provider Instructions: Activity and Therapy Recommendations: * If you are using [facility] then therapy will be provided at your home until they feel you have accomplished all of your goals. * If you are using [facility] then Physical Therapy will be provided until they feel you are ready to start Outpatient Physical Therapy. * If you are not using home therapy then Outpatient Physical Therapy should start about 3-5 days from your day of surgery. Therapy will last about 6-10 weeks * It is important not to put a pillow under your knee when you are relaxing or sleeping. It is just as important to make sure you are getting your knee perfectly straight as it is to regain your knee bend. * You were shown a series of exercises in the hospital. Do these exercises three times each day including the exercises you were shown in physical therapy. * Get up and walk several times each day. For the first four weeks, try not to stand or walk for more than one hour at a time. If you do stand or walk for more than one hour, you will not hurt anything, but your leg will likely swell. * As you feel comfortable, you may change from the walker or crutches to a cane and then to independent walking. Medications: * Narcotic You will likely be sent home from the hospital with a prescription for the narcotic pain medication that worked best throughout your stay. * Cefadroxil -take the antibiotic twice a day for 10 days to help prevent infection. * Aspirin Most patients will be required to take Aspirin 81mg twice a day for 6 weeks after surgery. This is obtained [id number] and a prescription is not necessary. * Other medications may be prescribed for specific circumstances. If you have any questions, please call the office at . * Resume previous home medications unless otherwise instructed TEDs/Elastic Stockings: The white elastic stockings help limit swelling and prevent blood clots from forming in your legs.~ The more you wear them, the more they work. Wear them for 2 weeks. Dressing Care: The dressing can be changed after physical therapy on postop day #1. Daily dry dressing changes for a few days, especially if the incision is still draining some. If the incision is not draining then you may leave the chele open to air. If there is a little bit of drainage or if the chele are getting stuck on your clothing then cover the incision with a dry dressing. The chele will be removed at your 2 week follow-up appointment. Showering: You may shower 5 days from the day of surgery as long as the incision is no longer draining. You may shower with the chele exposed. Let soapy water run over the chele and pat them dry. Do not scrub or soak the incision. Diet: You may resume your previous diet. Things To Watch For: * Drainage from the incision site that occurs more than one week after your surgery. * Increased redness at the incision site. * Fever above 102 degrees Fahrenheit. * Unusual chest pain or shortness of breath. * Call [facility] at with any of the above problems Follow-Up Visit: Follow-up with Dr. Luong's office 2-3 weeks after your day of surgery. We will remove your chele and answer any questions. If you have any additional questions or concerns, Dr Luong is usually in the office at the same time and will be available An appointment was probably scheduled when you signed-up for surgery in the office. If you have any questions call Office Instructions: More detailed instructions as well as Frequently Asked Questions were provided in a folder by our office when you signed-up for surgery. Please review these instructions when you get home. If you have any further questions or concerns, please feel free to call the office at [phone] Pending Studies at Discharge: No Stand-Alone Forms: My [facility] [employer], Smoking Cessation Medications and DC Order Prescriptions: New aspirin 81 mg Tablet,Delayed Release (Dr/Ec) 81 mg PO BID 42 Days Qty: 0 0RF oxycodone 5 mg Tablet 5 mg PO Q6H PRN (Reason: pain) Qty: 30 0RF cefadroxil 500 mg capsule 500 mg PO BID 10 Days Qty: 20 0RF Continued lisinopril 20 mg Tablet 10 mg PO QAM omeprazole 20 mg Tablet,Delayed Release (Dr/Ec) 20 mg PO QAM Admission Data Admit Date/Time: 05/30/24 12:01 Attending Provider: Nicholas Luong Admit Provider: Nicholas Luong Primary Care Provider: Frances Valenzuela Other Interventions: Discharge Summary Assessment (RN) Last Done: 05/31/24 09:43
== END 2024-05-31 10:48 | disposition home health service (06) ==
LOC: 3E 08:50 → ASU 08:50